=== PATIENT | female | born 1990 | race American Indian/Alaskan Native ===

== ENCOUNTER 2020-05-01 23:03 | Emergency (ER) | payer BC | END 2020-05-02 | disposition left against medical advice (07) | LOC: ED 23:03 | DX: Z53.21 Procedure and treatment not carried out due to patient leaving prior to being seen by health care provider (principal) ==

== ENCOUNTER 2021-07-23 09:02 | Emergency (ER) | payer BC ==
--- NOTE | 2021-07-23 11:59 | Emergency Department Report ---
- General Chief complaint: Skin/Abscess/Foreign Body Stated complaint: Q TIP IN EAR Time Seen by Provider: 07/23/21 11:27 Source: patient Mode of arrival: Ambulatory Limitations: No Limitations - History of Present Illness Initial comments: 31-year-old female presents to the hospital with the cotton tip of the Q-tip stuck in her ear. Patient was cleaning her ear with a Q-tip this morning and took it out her ear with a cotton tip remained behind. She complains of decreased hearing, and ear pressure and discomfort. - Related Data Allergies Allergy/AdvReac Type Severity Reaction Status Date / Time No Known Allergies Allergy Verified 07/23/21 09:52 Abscess Boil HPI - HPI Chief Complaint: Skin/Abscess/Foreign Body Stated Complaint: Q TIP IN EAR Time Seen by Provider: 07/23/21 11:27 Allergies/Adverse Reactions: Allergies Allergy/AdvReac Type Severity Reaction Status Date / Time No Known Allergies Allergy Verified 07/23/21 09:52 ED Review of Systems ROS: Stated complaint: Q TIP IN EAR Other details as noted in HPI Comment: All other systems reviewed and negative ED Physical Exam - General Limitations: No Limitations - Other Other exam information: General: No acute distress Head: Atraumatic Eyes: normal appearance ENT: Foreign body left ear, cotton Q-tip visualized in the left ear can Neck: Normal appearance, no midline tenderness Chest: Clear to auscultation bilaterally CV: Regular rate and rhythm Abdomen: Soft, normal bowel sounds, nontender, nondistended, no rebound or guarding Back: Normal inspection Extremity: Normal inspection, full range of motion Neuro: Alert O x 3, no facial asymmetry, speech clear, no gross motor sensory deficit Psych: Appropriate behavior Skin: No rash ED Course Vital Signs 07/23/21 09:52 Temperature 98.8 F Pulse Rate 79 Respiratory 16 Rate Blood Pressure 119/86 [Left] O2 Sat by Pulse 100 Oximetry - Foreign Body Removal Ear Location: ear canal (L) Foreign Body Suspected: other (Cotton from Q-tip) Foreign Body Removed: yes Foreign Body Removal Technique: forceps Tympanic Membrane Intact: Yes Patient Tolerated Procedure: well Complications: none ED Medical Decision Making - Medical Decision Making Patient informed not to place Q-tips in her ear moving forward. Cotton tip removed with TM intact Critical Care Time: No Critical care attestation.: If time is entered above; I have spent that time in minutes in the direct care of this critically ill patient, excluding procedure time. ED Disposition Clinical Impression: Foreign body of ear, left Disposition: 01 HOME / SELF CARE / HOMELESS Is pt being admited?: No Does the pt Need Aspirin: No Condition: Stable Instructions: Ear Foreign Body Additional Instructions: Follow up with your doctor or the doctor provided. Return if symptoms worsen as indicated by your discharge instructions. Referrals: OSMANY CARBONE MD [Primary Care Provider] - 3-5 Days Forms: Work/School Release Form(ED) Time of Disposition: 11:56
[2021-07-23 12:06] VITALS: BP 124/76
== END 2021-07-23 12:06 | disposition home or self-care (01) ==
LOC: ED 09:02
DX: T16.2XXA Foreign body in left ear, initial encounter (principal); X58.XXXA Exposure to other specified factors, initial encounter; Y93.89 Activity, other specified; Y92.89 Other specified places as the place of occurrence of the external cause; Y99.8 Other external cause status
CPT/HCPCS: 99282; 99283